=== PATIENT | female | born 1965 | race Caucasian/White ===

== ENCOUNTER 2017-11-22 09:48 | Outpatient (CLI) | payer OTHER ==
--- NOTE | 2017-11-22 11:21 | RAD ---
AP PELVIS: HISTORY: Pelvic pain. FINDINGS: Femoral head contours appear normal. Hips appear unremarkable. Bony pelvis is unremarkable. No luciano dence of fracture or other osseous abnormality. IMPRESSION: Unremarkable exam. POS: [facility]QU[facility]
--- NOTE | 2017-11-22 11:27 | RAD ---
LUMBAR SPINE 4 VIEWS: DATE: 11/22/17. COMPARISON: None. HISTORY: Radiculopathy. FINDINGS: Frontal imaging demonstrates 5 lumbar-type vertebral bodies with intact pedicles. Neutral lateral, f lexion lateral, and extension lateral imaging demonstrated no anterolisthesis or retrolisthesis. No acute osseous abnormality noted. Mild lower lumbar spine facet hypertrophy noted. IMPRESSION: No acute findings. POS: [facility]QU[facility]
== END 2017-11-22 09:49 | disposition home or self-care (01) ==
LOC: RAD 09:48
PROVIDERS: ATTEND Nurse Practitioner Family
DX: M51.16 Intervertebral disc disorders with radiculopathy, lumbar region (principal); R10.2 Pelvic and perineal pain
CPT/HCPCS: 72120; 72170

== ENCOUNTER 2019-02-06 13:36 | Outpatient (CLI) | payer OTHER ==
--- NOTE | 2019-02-06 15:00 | MRI ---
MRI Lumbar Spine Noncontrast: HISTORY: Intervertebral disc disorder. Patient complains of burning low back pain which radiates into the bila teral hips. COMPARISON: 12/20/[address] [facility]. FINDINGS: The visualized retroperitoneal structures demonstrate a normal appearance. Conus medullaris is normal in morphology and terminates at the L1 level. There is a transitional vertebra at the lumbosacral junction also seen on the prior exam. As mentione d on the prior study, there may be pseudoarticulation of the left aspect of L5 with S1. Normal signal intensity is demonstrated in the bone marrow. L1-2: There is no disc bulge or disc herniation. Central spinal canal and neural foramina are patent. L2-3: There is no disc bulge or disc herniation. Central spinal canal and neural foramina are patent. L3-4: There is a minimal disc bulge, stable when compared to the prior exam. Mild facet hypertrophic changes and ligamentous thickening are also present. There is stable mild narrowing of the central spinal canal. There is also mild left-sided neural foraminal narrowing with minimal left-sided neural foraminal narrowing. L4-5: There is a broad-based disc osteophyte complex again present. Facet hypertrophic changes and li gamentous thickening are again seen. Findings again result in mild to moderate central canal narrowing with mild right and [id number] left-sided neural foraminal narrowing. L5-S1: No significant disc bulge or disc herniation is seen. There is mild loss of intervertebral dis c height. Mild facet hypertrophic changes are present at this level. The central spinal canal and neural foramina are patent. IMPRESSION: Stable MRI lumbar spine with degenerative changes again present at the L3-4 and L4-5 levels.
== END 2019-02-06 13:37 | disposition home or self-care (01) ==
LOC: SCSMRI 13:36
PROVIDERS: ATTEND Specialist
DX: M51.17 Intervertebral disc disorders with radiculopathy, lumbosacral region (principal); M47.26 Other spondylosis with radiculopathy, lumbar region
CPT/HCPCS: 72148

== ENCOUNTER 2019-12-18 13:36 | Outpatient (CLI) | payer OTHER ==
--- NOTE | 2019-12-18 14:27 | MMO ---
Bilateral MAMMO Bilat Diag [facility]. CLINICAL HISTORY: Patient is 54 years old and is seen for diagnostic exam. The patient has no family history of breast cancer. The patient has a history of malignant (generic) in the left breast in 2018. The patient has a history of left Ultrasound Guided Core Biopsy in 2018 - malignant and left Lumpectomy in 2018 - malignant. VIEWS: The views performed were: bilateral craniocaudal with tomosynthesis; bilateral mediolateral oblique with tomosynthesis; and bilateral mediolateral with tomosynthesis. FILMS COMPARED: The present examination has been compared to prior imaging studies performed at [facility] on 02/02/2018 and 02/11/2019, and at [facility] on 11/14/2018. This study has been interpreted with the assistance of computer-aided detection. MAMMOGRAM FINDINGS: There are scattered fibroglandular densities. There is an area of architectural distortion and a post-surgical scar seen in the left breast. There are no suspicious masses, suspicious calcifications, or new areas of architectural distortion. IMPRESSION: THERE IS NO MAMMOGRAPHIC EVIDENCE OF MALIGNANCY. THE FINDINGS AND RECOMMENDATIONS WERE DISCUSSED WITH THE PATIENT PRIOR TO HER LEAVING THE CENTER. A ROUTINE FOLLOW-UP MAMMOGRAM IN 1 YEAR IS RECOMMENDED. THE RESULTS OF THIS EXAM WERE SENT TO THE PATIENT. ACR BI-RADS Category 2 - Benign finding MAMMOGRAPHY NOTE: 1. A negative mammogram report should not delay a biopsy if a dominant of clinically suspicious mass is present. 2. Approximately 10% to 15% of breast cancers are not detected by mammography. 3. Adenosis and dense breasts may obscure an underlying neoplasm. Reported by: JAZZ BRAY MD Electonically Signed: [id number]
== END 2019-12-18 13:37 | disposition home or self-care (01) ==
LOC: BICMAMMO 13:36
PROVIDERS: ATTEND Surgery
DX: Z08 Encounter for follow-up examination after completed treatment for malignant neoplasm (principal); Z85.3 Personal history of malignant neoplasm of breast
CPT/HCPCS: 77066; G0279

== ENCOUNTER 2020-12-18 09:55 | Outpatient (CLI) | payer BC | END 2020-12-18 09:56 | disposition home or self-care (01) | LOC: BICMAMMO 09:55 | PROVIDERS: ATTEND Internal Medicine Hematology & Oncology | DX: Z08 Encounter for follow-up examination after completed treatment for malignant neoplasm (principal); Z85.3 Personal history of malignant neoplasm of breast | CPT/HCPCS: 77066; G0279 ==

== ENCOUNTER 2021-07-06 11:01 | Outpatient (CLI) | payer BC | END 2021-07-06 11:02 | disposition home or self-care (01) | LOC: BICMAMMO 11:01 | PROVIDERS: ATTEND Internal Medicine Hematology & Oncology | DX: M85.89 Other specified disorders of bone density and structure, multiple sites (principal) | CPT/HCPCS: 77080 ==

== ENCOUNTER 2021-12-22 13:23 | Outpatient (CLI) | payer BC | END 2021-12-22 13:24 | disposition home or self-care (01) | LOC: BICMAMMO 13:23 | PROVIDERS: ATTEND Internal Medicine Hematology & Oncology | DX: Z08 Encounter for follow-up examination after completed treatment for malignant neoplasm (principal); Z85.3 Personal history of malignant neoplasm of breast | CPT/HCPCS: 77066; G0279 ==

== ENCOUNTER 2022-03-26 13:31 | Outpatient (CLI) | payer BC | END 2022-03-26 13:32 | disposition home or self-care (01) | LOC: BICMRI 13:31 | PROVIDERS: ATTEND Surgery | DX: C50.912 Malignant neoplasm of unspecified site of left female breast (principal) | CPT/HCPCS: 82565; A9577; C8908 ==

== ENCOUNTER 2022-07-09 15:20 | Outpatient (CLI) | payer BC | END 2022-07-09 15:21 | disposition home or self-care (01) | LOC: BICMAMMO 15:20 | PROVIDERS: ATTEND Internal Medicine Hematology & Oncology | DX: Z13.820 Encounter for screening for osteoporosis (principal); M85.851 Other specified disorders of bone density and structure, right thigh; M85.852 Other specified disorders of bone density and structure, left thigh | CPT/HCPCS: 77080 ==

== ENCOUNTER 2022-12-23 10:19 | Outpatient (CLI) | payer BC | END 2022-12-23 10:20 | disposition home or self-care (01) | LOC: BICMAMMO 10:19 | PROVIDERS: ATTEND Internal Medicine Hematology & Oncology | DX: C50.412 Malignant neoplasm of upper-outer quadrant of left female breast (principal) | CPT/HCPCS: 77066; G0279 ==

== ENCOUNTER 2023-07-13 15:10 | Outpatient (CLI) | payer BC | END 2023-07-13 15:11 | disposition home or self-care (01) | LOC: BICMAMMO 15:10 | PROVIDERS: ATTEND Internal Medicine Hematology & Oncology | DX: Z13.820 Encounter for screening for osteoporosis (principal); M85.88 Other specified disorders of bone density and structure, other site; T38.6X5A Adverse effect of antigonadotrophins, antiestrogens, antiandrogens, not elsewhere classified, initial encounter | CPT/HCPCS: 77080 ==

== ENCOUNTER 2023-12-27 13:28 | Outpatient (CLI) | payer BC | END 2023-12-27 13:29 | disposition home or self-care (01) | LOC: BICMAMMO 13:28 | PROVIDERS: ATTEND Internal Medicine Hematology & Oncology | DX: Z12.31 Encounter for screening mammogram for malignant neoplasm of breast (principal); Z85.3 Personal history of malignant neoplasm of breast; Z98.890 Other specified postprocedural states | CPT/HCPCS: 77063; 77067 ==

== ENCOUNTER 2025-04-19 07:43 | Outpatient (CLI) | payer BC ==
[2025-04-19 08:27] LABS: Estimated GFR - POC 98.0
[2025-04-19] MEDS ORDERED: Iopamidol 370 76% 100 ML VIAL ONE (14:35)
== END 2025-04-19 07:44 | disposition home or self-care (01) ==
LOC: CT 07:43
PROVIDERS: ATTEND Surgery
DX: C49.3 Malignant neoplasm of connective and soft tissue of thorax (principal)
CPT/HCPCS: 36415; 71260; 74177; 82565; Q9967

== ENCOUNTER 2025-04-26 11:45 | Outpatient (CLI) | payer BC | END 2025-04-26 11:46 | disposition home or self-care (01) | LOC: PET 11:45 | PROVIDERS: ATTEND Internal Medicine Hematology & Oncology | DX: C50.412 Malignant neoplasm of upper-outer quadrant of left female breast (principal); T38.6X5A Adverse effect of antigonadotrophins, antiestrogens, antiandrogens, not elsewhere classified, initial encounter | CPT/HCPCS: 78815; A9552 ==